=== PATIENT | male | born 1985 | race Two or more races ===

== ENCOUNTER → 2021-12-18 12:57 | Outpatient (BNVA) | payer SELFPAY | PROVIDERS: Visit Provider Physician Assistant Medical | DX: Z02.79 Encounter for issue of other medical certificate (principal) ==

== ENCOUNTER → 2024-08-25 08:09 | Outpatient (BNVA) | payer SELFPAY | PROVIDERS: Visit Provider Registered Nurse | DX: Z02.79 Encounter for issue of other medical certificate (principal) ==